=== PATIENT | female | born 2000 | race Caucasian/White ===

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

== ENCOUNTER 2019-01-27 15:15 | Emergency (ER) | payer OTHER ==
[2019-01-27 15:31] VITALS: BP 152/81
[2019-01-27] MEDS ORDERED: Tetan/Diph/Pertus SYR(Tdap)* 0.5 ML SYR(BOOSTRIX) use SYR contains LATEX IM ONE (15:41)
--- NOTE | 2019-01-27 15:45 | UC ---
Skin Complaint HPI - HPI Summary HPI Summary: 18-year-old female who is 25 weeks gestation who was working to put together a nursery and she was pushing against a part of the piece when the screwdriver slipped and caused a puncture wound to her left hand the web space in between the thumb and index finger. Last tetanus is unknown. She has not yet had the Tdap immunization for her . - History of Current Complaint Chief Complaint: UCWounds Time Seen by Provider: 01/27/19 15:27 Stated Complaint: PUNCTURE WOUND LEFT HAND 25 WKS PREG Hx Obtained From: Patient Hx Last Menstrual Period: 01/12/14 ?: Yes - 25 weeks gestation Onset/Duration: Sudden Onset Skin Exposure Onset/Duration: Minutes Ago Timing: Constant Onset Severity: Mild Current Severity: Mild Pain Intensity: 5 Location: Hand (Left) Aggravating Factor(s): Nothing Alleviating Factor(s): Nothing Associated Signs & Symptoms: Positive: Negative - Allergy/Home Medications Allergies/Adverse Reactions: Allergies Allergy/AdvReac Type Severity Reaction Status Date / Time latex Allergy contact Verified 01/27/19 15:31 dermatitis metoclopramide [From Reglan] Allergy PANIC Verified 01/27/19 15:31 ATTACK dairy Allergy Difficulty Uncoded 01/27/19 15:31 Breathing Home Medications: Home Medications Pnv No.95/Ferrous Fum/Folic AC [ Multivitamin Tablet] 1 each PO DAILY [History Confirmed 01/27/19] PMH/Surg Hx/FS Hx/Imm Hx Previously Healthy: Yes Endocrine History: Thyroid Disease Respiratory History: Asthma - Surgical History Surgical History: Yes Surgery Procedure, Year, and Place: PISIFORM REMOVAL RIGHT WRIST - Family History Known Family History: Positive: Non-Contributory - Social History Lives: With Family Alcohol Use: None Substance Use Type: None Smoking Status (MU): Never Smoked Tobacco Have You Smoked in the Last Year: No - Immunization History Most Recent Tetanus Shot: unknown Vaccination Up to Date: Yes Review of Systems All Other Systems Reviewed And Are Negative: Yes Skin: Positive: Other - Puncture wound in the webspace between the left thumb and left index finger. Is Patient Immunocompromised?: No Physical Exam Triage Information Reviewed: Yes Appearance: Well-Appearing, No Pain Distress, Well-Nourished Vital Signs: Initial Vital Signs Temp 98 F 01/27/19 15:27 Pulse 86 01/27/19 15:27 Resp 26 01/27/19 15:27 BP 152/81 01/27/19 15:27 Pulse Ox 100 01/27/19 15:27 Vital Signs Reviewed: Yes Musculoskeletal: Positive: Strength Intact, ROM Intact, Other: - Good peripheral pulses, neuro sensation and capillary refill. Good thumb to each finger. Good finger strength with flexion extension against resistance. Patient has a puncture wound in between the left thumb and index finger. No bleeding presently. It appears to be more superficial. Neurological Exam: Normal Neurological: Positive: Alert, Muscle Tone Normal Psychological Exam: Normal Skin: Positive: Other - See above notes. Course/Dx - Course Course Of Treatment: The wound was irrigated here. The patient was given a Tdap immunization following discussion with Dr. Broussard with regard to her latex allergy which is more of a topical contact dermatitis related to Coban dressings. A Band-Aid was applied. Patient's to keep the area clean and dry and change dressing daily. - Diagnoses Provider Diagnosis: Puncture wound of left hand Discharge ED - Sign-Out/Discharge Documenting (check all that apply): Patient Departure All imaging exams completed and their final reports reviewed: No Studies - Discharge Plan Condition: Good Disposition: HOME Patient Education Materials: Puncture Wound (DC) Referrals: Nely Tsang NP [Primary Care Provider] - Additional Instructions: You were given a Tdap tetanus immunization today. Please inform here [employer] provider and primary care provider of that. Keep the area clean and change the dressing daily. Watch for signs of infection such as hot, red, tender, pus drainage or red streaks up your arm or fever or chills. - Billing Disposition and Condition Condition: GOOD Disposition: Home
== END 2019-01-27 16:03 | disposition home or self-care (01) ==
LOC: UCCORT 15:15
DX: O9A.212 Injury, poisoning and certain other consequences of external causes complicating pregnancy, second trimester (principal); S61.432A Puncture wound without foreign body of left hand, initial encounter; J45.909 Unspecified asthma, uncomplicated; Z88.8 Allergy status to other drugs, medicaments and biological substances; Z91.040 Latex allergy status; Z3A.25 25 weeks gestation of pregnancy; Z91.011 Allergy to milk products; Z23 Encounter for immunization
CPT/HCPCS: 90471; 90715; 99211; G0463